=== PATIENT | male | born 1990 | race African-American/Black ===

== ENCOUNTER 2022-03-11 11:01 | Emergency (ER) | payer BC, OTHER ==
[~2022-03-11] VITALS: Ht 167.6 cm; Wt 107.5 kg
[2022-03-11 11:01] VITALS: BP 148/91
== END 2022-03-11 12:34 | disposition home or self-care (01) ==
LOC: ER 11:01
DX: S86.911A Strain of unspecified muscle(s) and tendon(s) at lower leg level, right leg, initial encounter (principal); X58.XXXA Exposure to other specified factors, initial encounter; Y93.89 Activity, other specified; Y92.9 Unspecified place or not applicable; Y99.9 Unspecified external cause status
CPT/HCPCS: 93971

== ENCOUNTER 2024-06-17 07:16 | Emergency (ER) | payer BC ==
[~2024-06-17] VITALS: Ht 167.6 cm; Wt 113.3 kg
[2024-06-17 07:56] VITALS: BP 146/90; PULSE 105; RESP 18; TEMP 99.2; O2SAT 97
[2024-06-17] MEDS: KETOROLAC TROMETH 60MG/2ML VIAL IM ONE (08:29)
[2024-06-17] MEDS: HYDROcodone-ACET 5/325MG TAB PO ONE (09:01)
[2024-06-17] MEDS ORDERED: PRED20TA2 PO (09:25)
[2024-06-17] MEDS ORDERED: TRAM-626 PO (09:25)
== END 2024-06-17 09:37 | disposition home or self-care (01) ==
LOC: ER 07:16
DX: G89.29 Other chronic pain (principal); M54.42 Lumbago with sciatica, left side; I10 Essential (primary) hypertension
CPT/HCPCS: 72100; 96372; 99283; J1885

== ENCOUNTER 2024-06-19 07:39 | Inpatient (IN) | payer BC ==
[~2024-06-19] VITALS: Ht 167.6 cm; Wt 124.9 kg
[~2024-06-19 07:39] MED LIST: PRED20TA2 PO; TRAM-626 PO
[2024-06-19 08:16] LABS: Hemoglobin 14.9 g/dL (13.5-17.5); Mean Corpuscular Hemoglobin 26.8 pg (28.0-32.0); Mean Corpuscular Volume 81.2 fL (80.0-100.0); Platelet Count (auto) 226 10^3/uL (140-450); Red Blood Cells 5.54 10^6/uL (4.5-5.90); Red Cell Distribution Width 14.2 % (11.8-14.3)
[2024-06-19 08:19] LABS: Basophils % (manual) 0 (0.0-2.0); Blast Cells 0; Metamyelocytes % 0; Myelocytes % 0; Promyelocytes % 0; Reactive Lymphocytes 0
[2024-06-19 08:39] LABS: Band Neutrophils % (manual) 6; Eosinophils % (manual) 1 (0-7); Lymphocytes % (manual) 4 (10.0-50.0); Monocytes % (manual) 5 (0-12); Platelet Estimate Adequate
[2024-06-19 08:43] LABS: Alanine Aminotransferase 32 U/L (7-40); Albumin 4.4 g/dL (3.2-4.8); Alkaline Phosphatase 82 U/L (46-116); Anion Gap 3 (5-15); Aspartate Aminotransferase 18 U/L (13-40); BUN/Creatinine Ratio 10.2 (10.0-20.0); Bilirubin, Total 1.1 mg/dL (0.2-1.0); Blood Urea Nitrogen 14 mg/dL (9-23); Calcium 9.6 mg/dL (8.7-10.4); Carbon Dioxide 29 mmol/L (20-30); Chloride 104 mmol/L (98-107); Glucose 124 mg/dL (74-106); Potassium 4.4 mmol/L (3.5-5.1); Sodium 136 mmol/L (136-145); Total Protein 7.9 g/dL (5.7-8.2)
[2024-06-19 09:31] LABS: Lactic Acid w/Reflex 2.3 mmol/L (0.4-2.0)
[2024-06-19] MEDS: KETOROLAC TROMETH 60MG/2ML VIAL IM ONE (09:34)
[2024-06-19] MEDS: SODIUM CHLORIDE 0.9% 1,000 ML IV ONE (10:07)
[2024-06-19] MEDS: cefTRIAXone 1GM/50ML D5W 50 ML IV ONE (10:24)
[2024-06-19] MEDS ORDERED: ONDANSETRON HCL 4 MG/2 ML VIAL IV PRN (14:00)
[2024-06-19 14:04] VITALS: PULSE 71; RESP 19; O2SAT 98
[2024-06-19] MEDS: SODIUM CHLORIDE 0.9% 1,000 ML IV SCH (14:08)
[2024-06-19] MEDS ORDERED: VANCOMYCIN PER PHARMACY 0 MG IV SCH (14:45)
[2024-06-19] MEDS: VANCOMYCIN 1GM/200ML 200 ML IV SCH (15:15)
[2024-06-19 15:26] LABS: Urine Bacteria FEW /hpf (None Seen); Urine Blood TRACE /uL (Negative); Urine Clarity Clear (Clear); Urine Color Light-Yellow (Yellow); Urine Protein, UAD Negative (Negative); Urine Specific Gravity 1.009 (1.001-1.035); Urine Urobilinogen Normal (Negative); Urine WBC 2 /hpf (0 - 3)
[2024-06-19 19:30] VITALS: RESP 19; O2SAT 98
[2024-06-19] MEDS: ceFAZolin 2 GM/D5W50ml 50 ML IV SCH (21:29)
[2024-06-19] MEDS: ACETAMINOPHEN 325 MG TAB PO PRN (22:28)
[2024-06-19 23:06] VITALS: BP 125/68; PULSE 92; RESP 20; TEMP 99.7; O2SAT 95
[2024-06-19] MEDS: MORPHINE SULFATE INJ 2 MG/ml SYRG IV PRN (23:31)
[2024-06-20] VITALS (7 sets, daily range): BP systolic 116–137; BP diastolic 62–79; PULSE 88–95; RESP 18–20; TEMP 98.7–100.2; O2SAT 95–97
[2024-06-20] MEDS ORDERED: LISI40TA16 PO (00:51)
[2024-06-20 07:44] LABS: Basophils # (auto) 0 10 ^3/uL (0-0.2); Basophils % (auto) 0.2 % (0.0-2.0); Eosinophils # (auto) 0 10 ^3/uL (0-0.8); Eosinophils % (auto) 0.2 % (0.0-7.0); Hematocrit 39.8 % (41.0-53.0); Hemoglobin 13.3 g/dL (13.5-17.5); Lymphocytes % (auto) 5.5 % (10.0-50.0); Mean Corpuscular Hgb Conc. 33.4 g/dL (32.0-36.0); Mean Corpuscular Volume 80.7 fL (80.0-100.0); Monocytes # (auto) 1.1 10 ^3/uL (0-1.3); Monocytes % (auto) 6.1 % (0.0-12.0); Neutrophils # (auto) 15.7 10 ^3/uL (1.6-8.6); Platelet Count (auto) 212 10^3/uL (140-450); Red Blood Cells 4.93 10^6/uL (4.5-5.90); Red Cell Distribution Width 13.8 % (11.8-14.3); White Blood Cell 17.8 10^3/uL (4.4-10.8)
[2024-06-20 08:09] LABS: Alanine Aminotransferase 31 U/L (7-40); Albumin 3.5 g/dL (3.2-4.8); Alkaline Phosphatase 74 U/L (46-116); Anion Gap 3 (5-15); Aspartate Aminotransferase 20 U/L (13-40); BUN/Creatinine Ratio 9.4 (10.0-20.0); Blood Urea Nitrogen 12 mg/dL (9-23); Calcium 8.9 mg/dL (8.7-10.4); Carbon Dioxide 28 mmol/L (20-30); Chloride 108 mmol/L (98-107); Glucose 93 mg/dL (74-106); Potassium 4.1 mmol/L (3.5-5.1); Sodium 139 mmol/L (136-145)
[2024-06-20 08:10] LABS: Total Protein 6.3 g/dL (5.7-8.2)
[2024-06-20] MEDS: VANCOMYCIN 1GM/200ML 200 ML IV SCH (09:19)
[2024-06-20] MEDS: ENOXAPARIN SOD 40 MG/0.4 ML SYRINGE SC SCH (09:19)
[2024-06-21] VITALS (7 sets, daily range): BP systolic 112–150; BP diastolic 64–92; PULSE 71–92; RESP 16–22; TEMP 97.9–98.5; O2SAT 94–99
[2024-06-21] MEDS: HYDROcodone-ACET 5/325MG TAB PO PRN (01:55)
[2024-06-21 07:39] LABS: Anion Gap 11 (5-15); Carbon Dioxide 21 mmol/L (20-30); Chloride 107 mmol/L (98-107); Potassium 3.6 mmol/L (3.5-5.1); Sodium 139 mmol/L (136-145)
[2024-06-21 07:40] LABS: Calcium 8.7 mg/dL (8.7-10.4)
[2024-06-21 07:45] LABS: BUN/Creatinine Ratio 10.1 (10.0-20.0); Blood Urea Nitrogen 10 mg/dL (9-23); Glucose 78 mg/dL (74-106)
[2024-06-21] MEDS: CEFEPIME 1GM/ 50ML 50 ML IV SCH (14:18)
[2024-06-21] MEDS ORDERED: HYDR25TA5 PO (17:59)
[2024-06-21] MEDS ORDERED: LISI40TA16 PO (18:00)
[2024-06-21] MEDS: FUROSEMIDE 40 MG/4 ML VIAL IV SCH (18:00)
[2024-06-22] VITALS (7 sets, daily range): BP systolic 101–126; BP diastolic 59–74; PULSE 74–88; RESP 17–19; TEMP 98–98.8; O2SAT 96–98
[2024-06-22] MEDS: VANCOMYCIN 1GM/200ML 200 ML IV SCH ×2 (03:42→13:11)
[2024-06-22 08:59] LABS: Chloride 105 mmol/L (98-107); Potassium 3.8 mmol/L (3.5-5.1); Sodium 139 mmol/L (136-145)
[2024-06-22 09:00] LABS: Anion Gap 5 (5-15); Calcium 9.1 mg/dL (8.7-10.4); Carbon Dioxide 29 mmol/L (20-30)
[2024-06-22 09:05] LABS: BUN/Creatinine Ratio 9.6 (10.0-20.0); Blood Urea Nitrogen 12 mg/dL (9-23); Glucose 96 mg/dL (74-106)
[2024-06-23 01:00] VITALS: BP 95/58; PULSE 72; RESP 16; O2SAT 98
[2024-06-23 05:00] VITALS: BP 124/71; PULSE 76; RESP 18; TEMP 98.4; O2SAT 100
[2024-06-23 06:25] LABS: Chloride 104 mmol/L (98-107); Potassium 3.7 mmol/L (3.5-5.1); Sodium 138 mmol/L (136-145)
[2024-06-23 06:26] LABS: Anion Gap 5 (5-15); Calcium 9.2 mg/dL (8.7-10.4); Carbon Dioxide 29 mmol/L (20-30)
[2024-06-23 06:31] LABS: BUN/Creatinine Ratio 11.1 (10.0-20.0); Blood Urea Nitrogen 12 mg/dL (9-23); Glucose 92 mg/dL (74-106)
[2024-06-23 10:30] VITALS: BP 114/75; PULSE 73; RESP 17; TEMP 98.1; O2SAT 97
[2024-06-23] MEDS ORDERED: BACDST PO (14:27)
[2024-06-23] MEDS: SULFAMETHOX W/TRIMETH(800/160MG) DS TAB PO SCH (14:41)
[2024-06-23 14:46] VITALS: BP 109/71; PULSE 77; RESP 17; TEMP 98.2; O2SAT 97
[2024-06-23 17:12] VITALS: BP 103/65; PULSE 71; RESP 17; TEMP 98.1; O2SAT 98
== END 2024-06-23 10:22 | disposition home or self-care (01) | DRG 872 ==
LOC: ER 07:39 → OVERFLOW 13:57 → TELE-E-ADS 13:59 → WEST WING 23:05 → TELE-E-ADS 06-21 06:08
PROVIDERS: ADMIT Internal Medicine; ATTEND Internal Medicine
DX: A41.9 Sepsis, unspecified organism (principal); L03.116 Cellulitis of left lower limb; E87.20 Acidosis, unspecified; N17.9 Acute kidney failure, unspecified; I10 Essential (primary) hypertension; T50.2X5A Adverse effect of carbonic-anhydrase inhibitors, benzothiadiazides and other diuretics, initial encounter
CPT/HCPCS: 36415; 73700; 80048; 80053; 80202; 81001; 83605; 85007; 85025; 85027; 93971; 96372; G0378; J1885